=== PATIENT | female | born 1950 | race Caucasian/White ===

== ENCOUNTER → 2016-11-29 | Outpatient (CLI) | payer MEDICARE, OTHER ==
[~2016-11-29] MED LIST: ALBU17IN INH; CARA1SUS OR; CODE30TA OR; CODEINE PO; FIOR30CA PO; FIORINAL PO; FLAG500T PO; FLON0.054; GLUC1000 OR; KLON0.5T OR; METF500T PO; MYCELEX PO; NYSTATIN; NYSTATIN POWDER; PERCOCET PO; PREPPAD PR; PROP12CASA PO; PROP60TA OR; SENO8.6T10 PO; STOOL SOFTENER PO; TUMS500C OR; VERE1CAP PO; VERELAN PO; [UNRECOGNIZED DRUG - OTHER]; [UNRECOGNIZED DRUG - OTHER] PO; [UNRECOGNIZED DRUG - OTHER] PO; [UNRECOGNIZED DRUG - OTHER] PO
[2016-11-29 13:38] LABS: BLOOD UREA NITROGEN 15 MG/DL (7-18); CREATININE FOR GFR 0.69 MG/DL (0.55-1.02); GLOMERULAR FILTRATION RATE > 60.0 (>45)
--- NOTE | 2016-11-29 16:57 | REP ---
Left shoulder MRI study without and with IV gadolinium: History: Contusion left upper arm and shoulder. No comparison radiographs. Pain in the left shoulder for several months. Comparison shoulder MRI arthrogram is from December 14, 2012. MR technique: Axial, oblique coronal, oblique sagittal imaging planes are utilized. T1 and T2-weighted scans are obtained in the usual fashion with and without fat saturation. The gadolinium enhancement dose is 12.6 ml of intravenous ProHance. MRI findings: Glenohumeral and acromioclavicular joints are normally aligned. Cortical and medullary bone signal intensity are normal except that there is mild subcortical cyst formation and marrow edema on either side of the acromioclavicular joint. There is fragmented spurring of the acromion process inferolaterally. Early osteoarthritic glenohumeral joint spurring is seen. There is a subcortical cyst in the superolateral humeral head. Precontrast images demonstrate a small glenohumeral joint effusion and moderate amount of heterogeneous mixed signal intensity material in the posterior, dependent portion of the glenohumeral joint. This intra-articular material was compatible with debris. Post gadolinium enhanced images demonstrate diffuse synovial enhancement and enhancement within this material suggesting synovial hypertrophy. There is evidence of a complete full-thickness retracted supraspinatus cuff tear at 12 o'clock on the humeral head on oblique coronal T2-weighted scans. This measures 16 mm in medial to lateral span. There is some narrowing of the subacromial space. A subacromial subdeltoid bursal effusion is seen. No definite labral cartilage tear is seen. The subscapularis tendon is attenuated. Infraspinatus tendon appears intact. The biceps tendon appears attenuated and is not well seen. Post contrast enhanced images show diffuse synovial enhancement consistent with nonspecific arthritis. Enhancement is seen in the acromioclavicular joint as well. Impression: Glenohumeral and acromioclavicular joint osteoarthritis. Large full-thickness supraspinatus complete cuff tear. Evidence of old injury to the subscapularis tendon and possibly biceps tendon. Subacromial subdeltoid bursal effusion is seen. Fragmented acromion process spurring noted. Cellular debris versus more likely synovial hypertrophy noted in the posterior aspect of the glenohumeral articulation. Signed by Kunal Alves MD 12/02/2016 07:59 A
== END | disposition home or self-care (01) ==
LOC: M RAD 13:14
PROVIDERS: ATTEND Physical Medicine & Rehabilitation
DX: M19.012 Primary osteoarthritis, left shoulder (principal); M75.122 Complete rotator cuff tear or rupture of left shoulder, not specified as traumatic; M25.412 Effusion, left shoulder
CPT/HCPCS: 36415; 73223; 82565; 84520; A9576

== ENCOUNTER → 2017-05-23 | Outpatient (CLI) | payer MEDICARE, OTHER ==
[~2017-05-23] MED LIST changes: -METF500T PO; +METF500T13 PO
--- NOTE | 2017-05-23 08:29 | REP ---
Clinical: Abdominal pain with elevated liver function tests. Technique: Real time xie scale ultrasound examination using curved array transducer. Findings: The patient is status post cholecystectomy and there is evidence for intrahepatic ductal dilatation along with compensatory dilatation to the common bile duct which measures 10.3 mm diameter. Liver, spleen, and pancreas are normal in contour, size, and echogenicity without focal hepatic, splenic or pancreatic lesion identified. Bilateral kidneys are normal in reniform shape without hydronephrosis. Right kidney measures 11.2 x 5.2 x 4.1 cm. Left kidney measures 10.9 x 5.8 x 6.0 cm. Visualized abdominal aorta normal. No ascites. Impression: Biliary ductal dilatation likely related to prior cholecystectomy. Otherwise essentially normal abdominal ultrasound. Signed by Ruy Kirkland MD 05/23/2017 08:21 A
== END ==
LOC: M RAD 06:48
PROVIDERS: ATTEND Internal Medicine Gastroenterology
DX: R10.13 Epigastric pain (principal); R94.5 Abnormal results of liver function studies; R11.2 Nausea with vomiting, unspecified; K83.8 Other specified diseases of biliary tract; Z90.49 Acquired absence of other specified parts of digestive tract

== ENCOUNTER → 2017-06-18 | Outpatient (REF) | payer MEDICARE, OTHER ==
[2017-06-18 13:54] LABS: IONIZED CALCIUM 4.9 MG/DL (4.5-5.3)
[2017-06-18 14:13] LABS: CALCIUM LEVEL 9.7 MG/DL (8.8-10.2)
== END ==
LOC: M LABDRAW1 13:05
PROVIDERS: ATTEND Internal Medicine Gastroenterology
DX: R10.13 Epigastric pain (principal); R74.8 Abnormal levels of other serum enzymes

== ENCOUNTER → 2018-01-15 | Outpatient (REF) | payer OTHER, MEDICARE ==
[2018-01-15 16:21] LABS: BLOOD UREA NITROGEN 17 MG/DL (7-18)
[2018-01-15 16:21] LABS: CREATININE FOR GFR 0.63 MG/DL (0.55-1.30); GLOMERULAR FILTRATION RATE > 60.0 (>45)
== END ==
LOC: M LAB REF 15:48
DX: M51.37 Other intervertebral disc degeneration, lumbosacral region (principal)

== ENCOUNTER → 2018-02-16 | Outpatient (CLI) | payer OTHER | LOC: M PLARAD 10:35 | DX: M51.37 Other intervertebral disc degeneration, lumbosacral region (principal); M51.26 Other intervertebral disc displacement, lumbar region; M51.27 Other intervertebral disc displacement, lumbosacral region; M48.07 Spinal stenosis, lumbosacral region | CPT/HCPCS: 72158 ==

== ENCOUNTER → 2018-06-05 | Outpatient (CLI) | payer MEDICARE, OTHER | LOC: M RAD 07:53 | DX: R10.9 Unspecified abdominal pain (principal) | CPT/HCPCS: 76705 ==

== ENCOUNTER → 2018-08-27 | Outpatient (REF) | payer OTHER ==
[2018-08-27 19:11] LABS: BLOOD UREA NITROGEN 19 MG/DL (7-18)
[2018-08-27 19:11] LABS: GLOMERULAR FILTRATION RATE > 60.0 (>45)
== END ==
LOC: M LABDRAW1 16:50
DX: M48.061 Spinal stenosis, lumbar region without neurogenic claudication (principal)

== ENCOUNTER → 2018-10-30 | Outpatient (CLI) | payer MEDICARE, OTHER ==
[~2018-10-30] MED LIST changes: +INDE120C5 PO; -PROP12CASA PO
--- NOTE | 2018-10-30 14:41 | REP ---
MRI LEFT HIP WITH AND WITHOUT CONTRAST: Multiple sequences obtained in the axial, coronal, and sagittal planes prior to and following the intravenous administration of 14 mL ProHance. Bone marrow signal is essentially normal. There is no bone marrow edema or occult fracture. No bone lesion is seen. There is no evidence of avascular necrosis. I do not see evidence of a labral tear. There is a normal amount of joint fluid. No paralabral cyst is seen. Along the greater trochanter of the proximal left femur, there is ill-defined high signal in the soft tissues with mild fluid. Findings are consistent with a moderate degree of left greater trochanteric tendinobursitis. No enhancing soft tissue nodule is seen in this region. Visualized intrapelvic structures appear unremarkable. I see no mass, adenopathy, or free fluid in the visualized pelvis. IMPRESSION: There are findings of moderate degree of left-sided greater trochanteric tendinobursitis. No evidence of labral tear. No suspicious osseous or soft tissue lesion. Electronically Signed by Laron Reid MD 10/30/2018 04:55 P
--- NOTE | 2018-10-30 20:06 | REP ---
MRI LUMBAR SPINE WITHOUT AND WITH CONTRAST: HISTORY: Spinal stenosis. CONTRAST: ProHance 14 mL. COMPARISON: 02/16/2018. Decreased signal intensity on T2 weighted images is present in the L1-2, L2-3 and L4-5 intervertebral discs. The discs are decreased in height. These findings are consistent with disc degeneration. A diffuse disc bulge and small right paracentral disc extrusion are present at the L1-2 level. The disc extrusion is slightly increased in size. There is superior migration of disc material. There is minimal compression of the thecal sac. There is hypertrophy of the posterior articulating facets. The L1 nerves exit the neural foramina without compression. A diffuse disc bulge is present at the L2-3 level. There is minimal compression of the thecal sac. There is hypertrophy of the posterior articulating facets. The L2 nerves exit the neural foramina without compression. A diffuse disc bulge is present at the L3-4 level. There is minimal compression of the thecal sac. There is hypertrophy of the posterior articulating facets. The L3 nerves exit the neural foramina without compression. A diffuse disc bulge is present at the L4-5 level. There is hypertrophy of the ligamenta flava and posterior articulating facets. These findings produce moderate central canal stenosis. The L4 nerve exit the neural foramina without compression. A diffuse disc bulge is present at the L5-S1 level. This abuts the S1 nerves. There is hypertrophy of the posterior articulating facets. The L5 nerves exit the neural foramina without compression. The conus medullaris is normal in appearance terminating at the level of the T12-L1 intervertebral disc. Normal signal intensity is present in the lumbar vertebral bodies. IMPRESSION: 1. Diffuse disc bulge and small right paracentral disc extrusion at the L1-2 level with minimal thecal sac compression. The disc extrusion has increased in size. 2. Diffuse disc bulges at the L2-3 and L3-4 levels with minimal thecal sac compression. 3.Moderate central canal stenosis at the L4-5 level secondary to disc bulge, ligamentous and facet hypertrophy. 4. Diffuse disc bulge at the L5-S1 level. This abuts the S1 nerves. There is no other significant change. Electronically Signed by Maldonado Merlos MD 11/02/2018 08:36 A
== END ==
LOC: M PLARAD 10:47
PROVIDERS: ATTEND Physical Medicine & Rehabilitation
DX: M48.061 Spinal stenosis, lumbar region without neurogenic claudication (principal)

== ENCOUNTER → 2018-10-30 | Outpatient (CLI) | payer MEDICARE, OTHER | LOC: M PLARAD 10:58 | PROVIDERS: ATTEND Physical Medicine & Rehabilitation | DX: M25.552 Pain in left hip (principal) ==

== ENCOUNTER → 2019-04-29 | Outpatient (CLI) | payer OTHER ==
[~2019-04-29] MED LIST changes: +PROHANCE 279.3MG/ML 15ML VIAL (A9576) As Ordered ONE
--- NOTE | 2019-04-29 15:51 | REP ---
MRI right hip without and with intravenous gadolinium: History: Degenerative disc disease. Hip pain. Question bursitis versus metastasis. Gadolinium enhancement dose: 14 mL of intravenous ProHance. MR technique: Axial, coronal and sagittal T1 and T2-weighted scans were obtained with and without fat saturation. Comparison MR study is from October 30, 2018. MRI findings: Cortical and medullary bone signal intensity remain normal in the proximal femurs and in the visualized bony pelvic ring. There is no evidence to suggest avascular necrosis. No significant hip joint effusion is seen. T2-weighted scans demonstrate areas of T2 hyperintense edema and fluid adjacent to the greater trochanters bilaterally consistent with peritrochanteric tendonitis and/or bursitis. This is more pronounced on the right than it was October 30, 2018. There is some contrast enhancement in this tissue as expected. No significant gadolinium enhancement is appreciated. There is no evidence of juxta-articular mass or cyst. No other abnormality. Impression: Moderate peritrochanteric tendonitis bursitis pattern, somewhat increased from the comparison MR imaging October 30, 2018. Electronically Signed by Kunal Alves MD 04/29/2019 03:59 P
== END ==
LOC: M RAD 13:14
PROVIDERS: ATTEND Physical Medicine & Rehabilitation
DX: M70.61 Trochanteric bursitis, right hip (principal); M51.37 Other intervertebral disc degeneration, lumbosacral region
CPT/HCPCS: 73723; A9576

== ENCOUNTER → 2021-04-06 | Outpatient (CLI) | payer OTHER ==
[~2021-04-06] MED LIST changes: -PROHANCE 279.3MG/ML 15ML VIAL (A9576) As Ordered ONE
--- NOTE | 2021-04-06 16:52 | REP ---
INDICATION: LUMBAR DDD ? HNP / CERVICAL SPINAL STENOSIS. COMPARISON: Comparison MRI study of the cervical spine is from September 03, 2019.. TECHNIQUE: Sagittal and axial T1 and T2-weighted scans are acquired in the usual fashion with and without fat saturation. Sequences include spin echo, turbo spin-echo, and STIR imaging sequences. FINDINGS: There is straightening of the normal cervical lordosis. Cervical cord is normal in course, caliber and signal intensity on T1 and T2 weighted scans. Vertebral body heights are preserved. No bony destructive lesion is seen. Axial and sagittal images taken at the C2-3 disc level demonstrate mild central disc bulging unchanged. No neural foraminal narrowing or spinal stenosis seen. C3-4, there is no evidence of a disc protrusion or foraminal narrowing. At the C4-5 level, there is no significant finding. At C5-C6, there is degenerative disc narrowing and desiccation. There is diffuse disc bulging. Bilateral uncovertebral spurring is seen. There is mild bilateral neural foraminal narrowing. This is unchanged from the September 03, 2019 study. No spinal cord compression is seen. Borderline canal size. Midline AP dimension of the thecal sac at C5-6 is 8 mm. At C6-7, there is posterior osteophytic ridging associated with diffuse disc bulging. The posterior osteophytic ridging is a little more prominent than on the prior study. There is bilateral neural foraminal narrowing from uncovertebral spurring which is felt to be unchanged. Canal size is borderline at C6-7. Midline AP dimension of the thecal sac is 7.2 mm. IMPRESSION: Degenerative spondylosis change as above. This is most pronounced at C6-7 where there is posterior osteophytic ridging. This is ill slightly more prominent than on the prior study. Otherwise findings are unchanged. Staff <Electronically signed by Anival Alves > 04/06/21 [id number]
--- NOTE | 2021-04-06 17:02 | REP ---
INDICATION: LUMBAR DDD ? HNP / CERVICAL SPINAL STENOSIS. COMPARISON: Comparison MRI study of the lumbar spine is from September 03, 2019.. TECHNIQUE: Sagittal and axial T1 and T2-weighted scans are acquired in the usual fashion with and without fat saturation. Sequences include spin echo, turbo spin-echo, and STIR imaging sequences. 15 mL of intravenous gadolinium is administered as requested and post gadolinium enhanced axial and sagittal images are acquired. FINDINGS: There is straightening of the normal lumbar lordosis. Lumbar vertebral body heights are preserved. No bony destructive lesion is seen. No fracture or collapse is seen. The tip of the conus medullaris is normal in position and appearance at T12-L1. Aorta is normal in caliber. No extra vertebral abnormality is appreciated. Sagittal and axial images taken at the L1-2 disc level demonstrate a broad-based central focal disc protrusion which extends cranially for 2-3 mm. This indents the ventral margin of the thecal sac. No spinal stenosis is seen. There is mild diffuse bulging of the remainder of the disc margin. On axial images, this appears less prominent than on the MRI study from 03 September 2019. It has a similar appearance on sagittal images. It is eccentric slightly to the right. At the L2-3 disc level, there is minimal diffuse disc bulging again noted. No spinal stenosis or foraminal narrowing is seen. At L3-4, there is minimal diffuse disc bulging. No spinal stenosis or foraminal narrowing is seen. At the L4-5 level, there is degenerative disc narrowing and decreased signal intensity. There is diffuse disc bulging which has increased since the prior study. There is moderate central canal stenosis due to diffuse disc bulging, moderate ligamentum flavum hypertrophy, mild a osteoarthritic facet hypertrophy, and developmentally short pedicles. The midline AP dimension of the thecal sac at L4-5 is 8.5 mm. Thecal sac has a triangular configuration. The degree of central canal stenosis appears to be unchanged although on sagittal scans the disc bulge appears more prominent. No nerve root compression is appreciated. At L5-S1, the disc is preserved in height. Its posterior margin is intact. There is mild facet hypertrophy bilaterally. Minimal diffuse disc bulging is again seen unchanged. Post gadolinium enhanced images show no suspicious or significant gadolinium enhancement. IMPRESSION: Degenerative spondylosis changes as above. Previously noted disc protrusion at L1-2 appears somewhat improved. Disc bulging at L4-5 appears more prominent. Moderate degree of central canal stenosis again noted at L4-5. <Electronically signed by Anival Alves > 04/06/21 [id number]
== END ==
LOC: M PLARAD 14:39
PROVIDERS: ATTEND Physical Medicine & Rehabilitation
DX: M48.02 Spinal stenosis, cervical region (principal); M50.320 Other cervical disc degeneration, mid-cervical region, unspecified level

== ENCOUNTER → 2022-03-20 | Outpatient (CLI) | payer OTHER ==
[~2022-03-20] MED LIST changes: +PROHANCE 279.3MG/ML 15ML VIAL As Ordered ONE
== END ==
LOC: M RAD 14:24
PROVIDERS: ATTEND Physical Medicine & Rehabilitation
DX: M51.37 Other intervertebral disc degeneration, lumbosacral region (principal)

== ENCOUNTER → 2022-05-07 | Outpatient (CLI) | payer OTHER | LOC: M RAD 13:51 | PROVIDERS: ATTEND Physical Medicine & Rehabilitation | DX: M19.011 Primary osteoarthritis, right shoulder (principal) ==

== ENCOUNTER → 2022-07-19 | Outpatient (CLI) | payer OTHER ==
[~2022-07-19] MED LIST changes: -PROHANCE 279.3MG/ML 15ML VIAL As Ordered ONE
== END ==
LOC: M PLARAD 13:27
PROVIDERS: ATTEND Physical Medicine & Rehabilitation
DX: M54.12 Radiculopathy, cervical region (principal); M50.21 Other cervical disc displacement, high cervical region; M48.02 Spinal stenosis, cervical region; M99.61 Osseous and subluxation stenosis of intervertebral foramina of cervical region

== ENCOUNTER → 2023-05-30 | Outpatient (CLI) | payer OTHER, MEDICARE | LOC: M RAD 14:34 | PROVIDERS: ATTEND Physical Medicine & Rehabilitation | DX: M50.320 Other cervical disc degeneration, mid-cervical region, unspecified level (principal) ==

== ENCOUNTER → 2024-02-05 | Outpatient (CLI) | payer OTHER, MEDICARE | LOC: M PLAIMG 13:37 | PROVIDERS: ATTEND Physical Medicine & Rehabilitation | DX: M51.37 Other intervertebral disc degeneration, lumbosacral region (principal) ==

== ENCOUNTER → 2024-10-07 | Outpatient (CLI) | payer OTHER, MEDICARE | LOC: M PLAIMG 12:51 | PROVIDERS: ATTEND Physical Medicine & Rehabilitation | DX: M47.897 Other spondylosis, lumbosacral region (principal) ==